=== PATIENT | female | born 1995 | race Caucasian/White ===

== ENCOUNTER 2017-06-24 15:54 | Outpatient (CLI) | payer BC ==
--- NOTE | 2017-06-25 09:01 | XRAY Report ---
TWO-VIEW CHEST: 06/24/2017 CLINICAL INDICATION: Anterior chest pain. FINDINGS: Frontal and lateral views of the chest demonstrate a normal cardiac silhouette. The lungs are clear. No effusion or pneumothorax is present. IMPRESSION: NORMAL CHEST. JOB #: [id number] EXT JOB #:[id number]
== END 2017-06-24 15:55 | disposition home or self-care (01) ==
LOC: DI.S 15:54
PROVIDERS: ATTEND Physician Assistant Medical
DX: R07.89 Other chest pain (principal)
CPT/HCPCS: 71020

== ENCOUNTER 2019-05-20 09:50 | Outpatient (CLI) | payer BC ==
--- NOTE | 2019-05-20 15:14 | XRAY Report ---
Reason: TACHYCARDIA,ATYPICAL CHEST PAIN Procedure Date: 05/20/2019 Accession Number: [id number] / [id number] Procedure: XRS - Chest 2 View X-Ray CPT Code: 53892 FULL RESULT: EXAM: CHEST RADIOGRAPHY EXAM DATE: 05/20/2019 10:04 AM. CLINICAL HISTORY: Interval chest discomfort for 3 weeks. Tachycardia. Patient describes chest pressure with sharp pains. COMPARISON: CHEST 2 VIEW PA/LAT 06/24/2017 4:07 PM. TECHNIQUE: 2 views. FINDINGS: Lungs/Pleura: No focal opacities evident. No pleural effusion. No pneumothorax. Normal volumes. Mediastinum: Heart and mediastinal contours are unremarkable. Other: None. IMPRESSION: Normal 2-view chest radiography. RADIA
== END 2019-05-20 09:51 | disposition home or self-care (01) ==
LOC: DI.S 09:50
PROVIDERS: ATTEND Internal Medicine
DX: R00.0 Tachycardia, unspecified (principal); R07.89 Other chest pain
CPT/HCPCS: 36415; 71046; 80053; 84443; 85025

== ENCOUNTER 2019-05-20 10:18 | Outpatient (CLI) | payer BC ==
[2019-05-20 17:13] LABS: BASOPHILS % (AUTO) 0.3 %; EOSINOPHILS % (AUTO) 0.6 %; HGB - HEMOGLOBIN 13.5 g/dL (12.0-16.0); LYMPHOCYTES % (AUTO) 32.2 %; MEAN CORPUSCULAR HEMOGLOBIN 29.2 pg (27.0-31.0); MEAN CORPUSCULAR VOLUME 91.1 fL (81.0-99.0); MEAN PLATELET VOLUME 10.9 fL (7.9-10.8); MONOCYTES # (AUTO) 0.5 10^3/uL (0.0-1.0); MONOCYTES % (AUTO) 7.1 %; NEUTROPHILS # (AUTO) 3.8 10^3/uL (1.5-6.6); NEUTROPHILS % (AUTO) 59.5 %; PLT - PLATELET COUNT 288 10^3/uL (130-450); RED BLOOD COUNT 4.63 10^6/uL (4.20-5.40); RED CELL DISTRIBUTION WIDTH 14.1 % (12.0-15.0); WHITE BLOOD COUNT 6.3 x10^3/uL (4.8-10.8)
[2019-05-20 17:28] LABS: ALBUMIN 4.7 g/dL (3.2-5.5); ALBUMIN/GLOBULIN RATIO 1.5 (1.0-2.2); BILIRUBIN,TOTAL 0.6 mg/dL (0.2-1.0); CALCIUM 9.4 mg/dL (8.5-10.3); CREATININE 0.6 mg/dL (0.4-1.0); TOTAL PROTEIN 7.8 g/dL (6.7-8.2)
== END 2019-05-20 10:19 | disposition home or self-care (01) ==
LOC: LAB.S 10:18
PROVIDERS: ATTEND Internal Medicine
DX: R00.0 Tachycardia, unspecified (principal); R07.89 Other chest pain
CPT/HCPCS: 36415; 80053; 84443; 85025

== ENCOUNTER 2022-01-07 13:37 | Emergency (ER) | payer BC ==
--- NOTE | 2022-01-07 14:08 | ED Physician Documentation ---
PD HPI ABD PAIN - Stated complaint Stated Complaint: ABD PX - Chief complaint Chief Complaint: Abd Pain - History obtained from History obtained from: Patient - History of Present Illness Timing - onset: How many weeks ago (1) Timing - duration: Weeks (1) Timing - details: Gradual onset, Still present, Waxing and waning Quality: Cramping, Aching, Pain Location: RLQ Improved by: Laying still Associated symptoms: Other (breast tenderness). No: Nausea, Vomiting Similar symptoms before: Diagnosis (ovarian cyst) Recently seen: Not recently seen - Additional information Additional information: 27-year-old female with a prior history of ovarian cyst has developed some pain in her right lower quadrant that is associated with a bloody vaginal discharge and cramping. In addition she has some breast tenderness and she has had a negative test 5 days ago and today. She denies any difficulty with her appetite or ability to eat and she is not having referred pain. She states that she does not usually have menstrual flow as she is has an IUD in place and she has not had a problem with her IUD that she is had in place for years. She is and does not use condoms currently. Review of Systems Constitutional: denies: Fever Eyes: denies: Decreased vision Ears: denies: Ear pain Nose: denies: Rhinorrhea / runny nose, Congestion Throat: denies: Sore throat Cardiac: denies: Chest pain / pressure, Palpitations Respiratory: denies: Dyspnea, Cough GI: reports: Abdominal Pain. denies: Nausea, Vomiting, Constipation, Diarrhea : reports: Discharge, Vaginal bleeding. denies: Dysuria, Frequency Skin: denies: Rash Musculoskeletal: denies: Neck pain, Back pain, Extremity pain Neurologic: denies: Generalized weakness, Focal weakness, Numbness PD PAST MEDICAL HISTORY - Past Surgical History Past Surgical History: No - Present Medications Home Medications: Ambulatory Orders Medication Instructions Recorded Confirmed Ibuprofen [Motrin] 800 mg PO Q8H PRN #30 tablet 03/05/16 Oxycodone HCl/Acetaminophen 1 - 2 tab PO Q4H PRN #15 tablet 03/05/16 [Percocet 5-325 mg Tablet] - Allergies Allergies/Adverse Reactions: Allergies Allergy/AdvReac Type Severity Reaction Status Date / Time No Known Drug Allergies Allergy Verified 01/07/22 13:54 - Social History Does the pt smoke?: No Smoking Status: Never smoker Does the pt drink ETOH?: No Does the pt have substance abuse?: No - Immunizations Immunizations are current?: Yes PD ED PE NORMAL - Vitals Vital signs reviewed: Yes (tachy and hypertensive ) - General General: Alert and oriented X 3, No acute distress, Well developed/nourished - HEENT HEENT: Atraumatic, PERRL, EOMI - Neck Neck: Supple, no meningeal sign, C-Spine cleared by NEXUS criteria - Cardiac Cardiac: RRR, No murmur - Respiratory Respiratory: No respiratory distress, Clear bilaterally - Abdomen Abdomen: Normal bowel sounds, Soft, Non distended, No organomegaly, Other (RLQ pain to deep palpation over the pelvic brim. ) - Back Back: No CVA TTP, No spinal TTP - Derm Derm: Normal color, Warm and dry, No rash - Extremities Extremities: No deformity, No edema - Neuro Neuro: Alert and oriented X 3, band singer 2-12 intact, No motor deficit, No sensory deficit, Normal speech Eye Opening: Spontaneous Motor: Obeys Commands Verbal: Oriented GCS Score: 15 - Psych Psych: Normal mood, Normal affect Results - Vitals Vitals: Vital Signs - 24 hr 01/07/22 01/07/22 13:50 15:22 Temperature 36.7 C 36.5 C Heart Rate 129 H 94 Respiratory 17 16 Rate Blood Pressure 141/92 H 127/76 O2 Saturation 100 100 Oxygen O2 Source Room air - Labs Labs: Laboratory Tests 01/07/22 01/07/22 01/07/22 14:13 14:20 14:20 WBC 5.8 RBC 4.84 Hgb 15.1 Hct 43.7 MCV 90.3 MCH 31.2 H MCHC 34.6 RDW 12.4 Plt Count 268 MPV 9.7 Neut # (Auto) 3.5 Lymph # (Auto) 1.9 [place] # (Auto) 0.3 Eos # (Auto) 0.0 Baso # (Auto) 0.0 Absolute Nucleated RBC 0.00 Nucleated RBC % 0.0 Sodium 140 Potassium 3.9 Chloride 105 Carbon Dioxide 24 Anion Gap 11.0 BUN 12 Creatinine 0.7 Estimated GFR (MDRD) 103 Glucose 110 H Calcium 9.4 Total Bilirubin 1.3 H AST 19 ALT 23 Alkaline Phosphatase 57 Total Protein 7.9 Albumin 5.0 Globulin 2.9 Albumin/Globulin Ratio 1.7 Lipase 32 HCG, Quant Urine Color YELLOW Urine Clarity CLEAR Urine pH 6.5 Ur Specific [place] 1.015 Urine Protein NEGATIVE Urine Glucose (UA) NEGATIVE Urine Ketones NEGATIVE Urine Occult Blood TRACE-INTA Urine Nitrite NEGATIVE Urine Bilirubin NEGATIVE Urine Urobilinogen 0.2 (NORMAL) Ur Leukocyte Esterase NEGATIVE Ur Microscopic Review NOT INDICATED Urine Culture Comments NOT INDICATED 01/07/22 14:20 WBC RBC Hgb Hct MCV MCH MCHC RDW Plt Count MPV Neut # (Auto) Lymph # (Auto) [place] # (Auto) Eos # (Auto) Baso # (Auto) Absolute Nucleated RBC Nucleated RBC % Sodium Potassium Chloride Carbon Dioxide Anion Gap BUN Creatinine Estimated GFR (MDRD) Glucose Calcium Total Bilirubin AST ALT Alkaline Phosphatase Total Protein Albumin Globulin Albumin/Globulin Ratio Lipase HCG, Quant < 0.60 Urine Color Urine Clarity Urine pH Ur Specific [place] Urine Protein Urine Glucose (UA) Urine Ketones Urine Occult Blood Urine Nitrite Urine Bilirubin Urine Urobilinogen Ur Leukocyte Esterase Ur Microscopic Review Urine Culture Comments - Rads (name of study) pelvic u/s Radiology: Prelim report reviewed (Impression: 1. IUD in satisfactory position. Both ovaries have greater than 12 follicles, which can support a clinical diagnosis of polycystic ovarian syndrome.), EMP read indepedently, See rad report PD MEDICAL DECISION MAKING - ED course Complexity details: reviewed old records, reviewed results, re-evaluated patient, considered differential, d/w patient ED course: 26-year-old female with a history of ovarian cyst previously has right lower quadrant abdominal pain again she does not have any signs of appendicitis associated with this she is eating she is afebrile she has a normal white blood cell count and she has tenderness only on deep palpation to the pelvic brim. She does not have peritoneal signs. I do not suspect appendicitis. Today we did ultrasound of the pelvis which demonstrated polycystic ovaries. The IUD is in the correct position and the patient is not . I have asked the patient to follow-up with her [employer] [employer] doctor regarding her symptoms. The patient declines pain medication. Departure - Departure Disposition: 01 Home, Self Care Clinical Impression: Cyst of ovary Qualifiers: Laterality: right Qualified Code(s): N83.201 - Unspecified ovarian cyst, right side Condition: Stable Instructions: Polycystic Ovary Syndrome, ED Cyst Ovarian Follow-Up: Your, [facility] doctor [Other] Comments: And, today looks like the pain you are having in the right lower quadrant is related to an ovarian cyst. It also appears there may be a question of polycystic ovary syndrome. Follow-up with your [facility] [employer] [employer] doctor. Discharge Date/Time: 01/07/22 15:24
[2022-01-07 14:32] LABS: BASOPHILS % (AUTO) 0.3 %; EOSINOPHILS % (AUTO) 0.5 %; HCT - HEMATOCRIT 43.7 % (37.0-47.0); HGB - HEMOGLOBIN 15.1 g/dL (12.0-16.0); LYMPHOCYTES # (AUTO) 1.9 10^3/uL (1.5-3.5); MEAN CORPUSCULAR HEMOGLOBIN 31.2 pg (27.0-31.0); MEAN CORPUSCULAR HGB CONC 34.6 g/dL (32.0-36.0); MEAN CORPUSCULAR VOLUME 90.3 fL (81.0-99.0); MEAN PLATELET VOLUME 9.7 fL (7.9-10.8); MONOCYTES # (AUTO) 0.3 10^3/uL (0.0-1.0); MONOCYTES % (AUTO) 5.4 %; NEUTROPHILS # (AUTO) 3.5 10^3/uL (1.5-6.6); NEUTROPHILS % (AUTO) 60.5 %; PLT - PLATELET COUNT 268 10^3/uL (130-450); RED BLOOD COUNT 4.84 10^6/uL (4.20-5.40); RED CELL DISTRIBUTION WIDTH 12.4 % (12.0-15.0); WHITE BLOOD COUNT 5.8 x10^3/uL (4.8-10.8)
[2022-01-07 14:33] LABS: BILIRUBIN,URINE NEGATIVE (NEGATIVE); GLUCOSE, URINE (UA) NEGATIVE (NEGATIVE); KETONES,URINE (UA) NEGATIVE (NEGATIVE); LEUKOCYTE ESTERASE, URINE NEGATIVE (NEGATIVE); NITRITE,URINE NEGATIVE (NEGATIVE); OCCULT BLOOD,URINE TRACE-INTA (NEGATIVE); PH,URINE 6.5 PH (5.0-7.5); PROTEIN,URINE NEGATIVE (NEGATIVE); UROBILINOGEN,URINE 0.2 (NORMAL) E.U./dL (NORMAL)
[2022-01-07 14:39] LABS: ALBUMIN/GLOBULIN RATIO 1.7 (1.0-2.2); BILIRUBIN,TOTAL 1.3 mg/dL (0.2-1.0); CALCIUM 9.4 mg/dL (8.5-10.3); CREATININE 0.7 mg/dL (0.4-1.0); POTASSIUM 3.9 mmol/L (3.5-5.0); TOTAL PROTEIN 7.9 g/dL (6.7-8.2)
[2022-01-07 14:52] LABS: CLARITY,URINE CLEAR (CLEAR)
[2022-01-07 15:24] VITALS: BP 127/76
--- NOTE | 2022-01-07 16:36 | Ultrasound Report ---
PROCEDURE: Pelvic w/Doppler Complete INDICATIONS: RLQ pain TECHNIQUE: Real-time scanning was performed of the pelvic organs, with image documentation. Additional endovagi nal scanning was necessary due to incomplete visualization of the adnexal and endometrial structures by transabdominal scanning. COMPARISON: None. FINDINGS: No pathologic free abdominal or pelvic fluid. Uterus: Uterus is normal in size at 7.3 x 3.6 x 5.4 cm. Uterine volume is 74 mL. Uterus has a homoge neous echo pattern. It is anteverted. The endometrium measures 2 mm in combined thickness. An IUD is in satisfactory position. Ovaries: Right ovary measures 4.2 x 1.7 x 3.6 cm with a volume of 13.6 mL. Left ovary measures 4.0 x 2.0 x 1.8 cm, with a volume of 7.6 mL. Both ovaries have greater than 12 follicles. There is intraov mayela flow bilaterally. IMPRESSION: 1. IUD in satisfactory position. 2. Both ovaries have greater than 12 follicles, which can support a clinical diagnosis of polycystic ovarian syndrome. Reviewed by: Dariel Lamb MD on 01/07/2022 3:35 PM [facility] Approved by: Dariel Lamb MD on 01/07/2022 3:35 PM [facility] Station ID: [id number]
== END 2022-01-07 15:24 | disposition home or self-care (01) ==
LOC: ED 13:37
DX: N83.201 Unspecified ovarian cyst, right side (principal); Z97.5 Presence of (intrauterine) contraceptive device
CPT/HCPCS: 36415; 80053; 81001; 81003; 83690; 84702; 85025; 87086; 93975; 99284

== ENCOUNTER 2023-11-08 08:00 | Outpatient (CLI) | payer BC | END 2023-11-08 23:59 | disposition home or self-care (01) | LOC: LAB.R 08:00 | PROVIDERS: ATTEND Nurse Practitioner | DX: Z48.02 Encounter for removal of sutures (principal) | CPT/HCPCS: 87070; 87077; 87181; 87205 ==

== ENCOUNTER 2023-11-08 14:40 | Outpatient (CLI) | payer BC | END 2023-11-08 14:41 | disposition home or self-care (01) | LOC: LAB.R 14:40 | PROVIDERS: ATTEND Nurse Practitioner | DX: Z48.02 Encounter for removal of sutures (principal) ==